=== PATIENT | male | born 1945 ===

== ENCOUNTER → 2018-12-26 | Outpatient (CLI) | payer OTHER ==
[~2018-12-26] MED LIST: AMLO5TAB10 PO; ASPI81TA50 PO; ATOR20TA58 PO; GLIP10TA13 PO; IOHEXOL 180 MG/ML 10 ML VIAL. ONE; OMEP20TA63 PO; PIOG45TA62 PO; TAMS0.4C97 PO; TRAM50TA PO; methylPREDNISolone ACETATE 40 MG/ML VIAL. ONE; methylPREDNISolone ACETATE 80 MG/ML VIAL. ONE
--- NOTE | 2018-12-27 01:53 | PAIN ---
DATE OF SERVICE: 12/26/2018 INITIAL CONSULTATION FOR PAIN CLINIC CHIEF COMPLAINT: Low back and bilateral lower extremity pain. HISTORY OF PRESENT ILLNESS: This is a 73-year-old male who presents with history of pain in the low back and bilateral lower extremities for several years, about 19 years, not as a result of any specific injury or action he is aware of, but getting worse over time. The patient reports it is in the low back, across the low back, in the posterior gluteus, posterior thighs, posterior calf, in the lateral anterior thighs as well and medially, and the patient reports it is worse with walking, standing, change in positions, but stated at night, it can awaken him from sleep occasionally, but not every night, it varies and when he sits down or lies down, at first he has some significant pain in the anterior and lateral thighs, he reports. The patient is taking tramadol both in the morning and the evening 1 tablet 50 mg, which decreases his pain significantly. It he does not take it, the pain is much, much worse. The patient reports he has had exercise treatment, chiropractic treatments in the past, also physical therapy, still doing some exercises on his own and stays very active. The patient did have epidural injection in an outside facility in 2016, he reports, which helped for about 6 months. The patient reports the pain is not radiating, shooting, aching, primarily at night, stabbing and sharp in the low back and dull as well, again worse with walking, standing, changing positions, better with sitting or lying down. It does not affect his bowel or bladder control, but does affect his ability to walk. He is not using assistive devices, however, but has significant fatigability in both lower extremities, but the pain equal right and left. The patient reports a disability rate from 0-10, 10 being the worst, is a 3 with family home responsibilities, recreation, social activity, occupation and self-care, 5 with life support activities. The patient did have a recent CT scan of the lumbar spine about 1 month ago looks like at [facility] that showed significant decrease in height at the L5-S1, also some degenerative changes at L4-L5 to less severe degree with significant stenosis at the L5-S1 in the bilateral nerve roots. PAST MEDICAL HISTORY: Significant for diabetes, skin cancers, hypertension, previous myocardial infarction, coronary artery bypass grafting, peripheral vascular disease, arthritis. PREVIOUS SURGERIES: Include a Whipple procedure 6 years ago, coronary artery bypass grafting 22 years ago and bilateral internal sphincterotomies. CURRENT MEDICATIONS: Include glipizide, pioglitazone, Flomax, Prilosec, daily baby aspirin, amlodipine, tramadol and atorvastatin. ALLERGIES: THE PATIENT IS ALLERGIC TO PENICILLIN. FAMILY HISTORY: Significant for no major medical problems or conditions that he lists. SOCIAL HISTORY: The patient drinks alcohol occasionally, but only very rarely. Does not smoke, does not drink, does not use any illegal, illicit or recreational drugs. He is and lives with his spouse, lives locally in [place], [place] and reports he is currently retired. REVIEW OF SYSTEMS: The patient's review of systems is positive for those items mentioned in history of present illness. All systems reviewed and otherwise negative. It is complete, full and well documented on the patient's chart. PHYSICAL EXAMINATION: VITAL SIGNS: The patient's blood pressure is 164/80, pulse 62, respirations 18, temperature 98.2 degrees Fahrenheit. Height is 5 feet 9 inches, weight is 178 pounds. GENERAL: The patient is awake, alert, oriented, appropriate, very pleasant demeanor. HEENT: Head shows normocephalic, atraumatic. Extraocular movements are intact and symmetrical. Oral cavity: Mucous membranes moist and pink. Dentition is intact. NECK: Shows anterior throat supple without palpable lymphadenopathy noted. Swallow reflex symmetrical. CHEST: Shows normal with inspection. Breath sounds clear to auscultation bilaterally. HEART: Shows S1, S2 clear. No murmurs auscultated. ABDOMEN: Soft, nontender, nondistended. No palpable organomegaly is noted. No rebound or guarding demonstrated. BACK: Shows spine grossly in the midline. Normal appearing thoracic kyphosis and lumbar lordotic curvature. Lumbar paraspinous muscle shows symmetrical on inspection, on palpation shows some moderate tenderness diffusely throughout the upper, middle and lower distribution of paraspinous muscles, but only diffusely without radiation. The patient shows good rotational motion of lumbar spine both laterally as well as extension and flexion without significant pain reported, greater than 10 degrees right and left as well as extension greater than 10 degrees, forward flexion 45 degrees. The patient shows no tenderness over the sacrum or sacroiliac region or spinous processes. EXTREMITIES: The patient's lower extremities show deep tendon reflexes 2+ in the patellar and 1+ in the tendo calcaneus tendons are equal. Motor exam is strong with 5/5 dorsiflexion, extension, quadriceps and hamstring flexion. Peripheral pulses are 1+ posterior tibial and equal. No peripheral edema is noted. Lower extremities are warm and dry to touch, equal in color and appearance. Straight leg raise noted to be negative for reproduction of radicular symptoms bilaterally. Gaenslen's and Prieto's maneuvers are negative bilaterally as well. The patient is able to stand, stand on his toes without significant difficulty or loss of balance, walks with a normal appearing gait for a short distance in the office today. SKIN: Shows warm and dry, good turgor. No edema. No sores, rashes or bruising throughout. IMPRESSION: 1. This is a 73-year-old male with approximately 19-year history of low back pain, bilateral lower extremity pain managed fairly well with tramadol and exercise and strengthening, but with significant pain now becoming somewhat resistant to these current treatments. 2. CT scan of lumbar spine as noted. 3. Diabetes, insulin dependent. 4. Hypertension. 5. Arthritis. PLAN: Options were discussed with the patient including conservative medical management, physical therapy, interventional technique. He would like to pursue interventional techniques as he has done well with these in the past. We discussed a lumbar epidural steroid injection using descriptions as well as anatomical models to describe the procedure. Risks were then discussed including, but not limited to, bleeding, infection, possibility of epidural hematoma, subsequent neurological compromise, dural puncture, headaches, spinal cord and/or nerve damage, side effects of steroid medication and poor results regarding pain control. The patient understands and wished to proceed. The patient to return to the clinic in approximately 2 weeks for followup. He was counseled as to return appointment, activity level and side effects to be aware of. DIAGNOSES: Lumbar radiculopathy with lumbar degenerative disk disease, lumbar spinal stenosis. PROCEDURE: Lumbar epidural steroid injection, translaminar approach at L5-S1 level using C-arm fluoroscopic guidance under sterile prep and drape using local anesthetic. MEDICATION INJECTED: A total of 120 mg Depo-Medrol plus 10 mL of preservative-free normal saline and 2 mL of Isovue for contrast. CONDITION AT DISCHARGE: Stable. The patient tolerated procedure well, had no complications. ASA YAN MD DR: DAVID/ori JOB#: [id number] / [id number]
== END | disposition home or self-care (01) ==
LOC: PNCL 09:03
PROVIDERS: ATTEND Anesthesiology
DX: M51.16 Intervertebral disc disorders with radiculopathy, lumbar region (principal); M48.061 Spinal stenosis, lumbar region without neurogenic claudication; I10 Essential (primary) hypertension; M19.90 Unspecified osteoarthritis, unspecified site; E11.9 Type 2 diabetes mellitus without complications; Z85.828 Personal history of other malignant neoplasm of skin; I25.2 Old myocardial infarction; Z95.1 Presence of aortocoronary bypass graft; Z79.4 Long term (current) use of insulin; Z98.890 Other specified postprocedural states; Z79.82 Long term (current) use of aspirin; Z88.0 Allergy status to penicillin; Z72.89 Other problems related to lifestyle
CPT/HCPCS: 62323; J1030; J1040; Q9965

== ENCOUNTER → 2019-01-09 | Outpatient (CLI) | payer OTHER ==
[~2019-01-09] MED LIST changes: -IOHEXOL 180 MG/ML 10 ML VIAL. ONE; -methylPREDNISolone ACETATE 40 MG/ML VIAL. ONE; -methylPREDNISolone ACETATE 80 MG/ML VIAL. ONE
--- NOTE | 2019-01-09 23:22 | PAIN ---
DATE OF SERVICE: 01/09/2019 DIAGNOSES: Lumbar radiculopathy with lumbar spinal stenosis, lumbar degenerative disk disease. HISTORY OF PRESENT ILLNESS: The patient is a 73-year-old male who returns for followup status post lumbar epidural steroid injection x 1. The patient reports about 75% improvement, overall been doing very well after the last injection. The patient reports he increase his activity with greater ease and comfort, walking greater distances, sitting for longer periods, sleeping better at night, does awaken him from sleep occasionally, but only about every 6-7 hours. The patient reports he is taking some tramadol, which helps with his back and leg as well. His blood sugar was elevated fairly significantly after the shot, but it is down to 140 today. The patient reports his pain is a 0 on a scale of 10 at its average, at its worse, at its least and is a 0 today. The patient reports no significant pain, is an aching, occasionally in the legs and back. The patient has been and very active, increasing his activity, traveling better and he is much happier that he is able to ride in his car for longer distances and time without his back aching. PHYSICAL EXAMINATION: VITAL SIGNS: The patient's blood pressure 156/78, pulse 63, respirations 16, temperature 98.4 degrees Fahrenheit, and weight is 172 pounds. GENERAL: The patient is awake, alert, oriented, appropriate, very pleasant demeanor. HEENT: Shows normocephalic, atraumatic. Extraocular movements intact and symmetrical. Oral cavity: Mucous membranes are moist and pink. Dentition is intact. NECK: Shows anterior throat supple. CHEST: Shows normal on inspection. Breath sounds are clear bilaterally. ABDOMEN: Soft, nontender, nondistended. BACK: Shows spine grossly in the midline. Lumbar paraspinous muscle shows symmetrical on inspection. With palpation shows very minimal tenderness in the lower lumbar distribution of paraspinous muscles bilaterally, but only mildly and without radiation. The patient shows good rotational motion both bilaterally as well as extension and flexion without difficulty. EXTREMITIES: Lower extremities show deep tendon reflexes 2+ in the patellar, 1+ tendo calcaneus tendons. Motor exam is strong with 5/5 dorsiflexion, extension, quadriceps and hamstring flexion and equal. Peripheral pulses are 1+ bilaterally. Options were discussed with the patient. The patient's old chart was reviewed as was his current medication regimen updated. Current review of systems is updated today as well. We will hold on further injections at this time as the patient is doing quite well. I would like to wait and increase his activity. We encouraged him to do exercises and increase activity as tolerated. The patient will follow up at this time on as needed basis. ASA YAN MD DR: DAVID/ori JOB#: [id number] / [id number]
== END | disposition home or self-care (01) ==
LOC: PNCL 09:29
PROVIDERS: ATTEND Anesthesiology
DX: M51.16 Intervertebral disc disorders with radiculopathy, lumbar region (principal); M48.061 Spinal stenosis, lumbar region without neurogenic claudication
CPT/HCPCS: G0463